=== PATIENT | female | born 1985 | race Caucasian/White ===

== ENCOUNTER 2024-04-01 09:49 | Emergency (ER) | payer BC, SELFPAY ==
[2024-04-01] MEDS ORDERED: Ibuprofen 200 MG TAB ONE (11:09)
== END 2024-04-01 12:29 | disposition home or self-care (01) ==
LOC: CSHERS 09:49
DX: S22.20XA Unspecified fracture of sternum, initial encounter for closed fracture (principal); V43.92XA Unspecified car occupant injured in collision with other type car in traffic accident, initial encounter; Y93.89 Activity, other specified
CPT/HCPCS: 71120; 99284

== ENCOUNTER 2025-03-18 18:51 | Emergency (ER) | payer SELFPAY ==
[2025-03-18 20:55] LABS: #Basophils 0.05 10x3/uL (0.0-0.2); #Eosinophils 0.13 10x3/uL (0.0-0.5); #Monocytes 0.51 10x3/uL (0.0-1.1); #Neutrophils 2.84 10x3/uL (1.5-8.4); %Basophils 0.8 % (0.0-2.0); %Eosinophils 2.1 % (0.0-6.0); %Lymphocytes 43.9 % (18.0-47.0); %Monocytes 8.1 % (0.0-10.0); %Neutrophils 44.9 % (40.0-75.0); Hematocrit 36.0 % (34.9-44.5); Hemoglobin 13.0 g/dL (12.0-15.5); Mean Corpuscular Hemoglobin 31.6 pg (27.0-33.0); Mean Corpuscular Volume 87.6 fL (81.6-98.3); Platelet Count 213 10x3/uL (150-450); Red Blood Cell (RBC) Count 4.11 10x6/uL (3.90-5.03); White Blood Cell (WBC) Count 6.31 10x3/uL (3.5-10.5)
[2025-03-18 21:12] LABS: ALT (SGPT) 24 U/L (Less than 34); AST (SGOT) 21 U/L (11-34); Albumin 4.6 g/dL (3.1-4.5); Alkaline Phosphatase 33 U/L (40-110); Anion Gap 18 mmol/L (10-20); BUN (Urea Nitrogen) 8 mg/dL (7.0-18.7); Bilirubin, Total 0.4 mg/dL (0.3-1.2); Calc. Creatinine Clearance 0 mL/min (70-130); Calcium 8.9 mg/dL (7.8-10.44); Carbon Dioxide 18 mmol/L (22-29); Chloride 109 mmol/L (98-107); Globulin 3.3 g/dL (2.4-3.5); Glucose 79 mg/dL (70-105); Potassium 3.7 mmol/L (3.5-5.1); Sodium 141 mmol/L (136-145)
== END 2025-03-18 22:15 | disposition home or self-care (01) ==
LOC: CSHERS 18:51
DX: R42 Dizziness and giddiness (principal); R00.0 Tachycardia, unspecified; R29.700 NIHSS score 0
CPT/HCPCS: 80053; 83605; 85025; 85379; 93005; 99285